=== PATIENT | female | born 1970 | race Two or more races ===

== ENCOUNTER 2018-05-26 05:55 | Emergency (ER) | payer BC, MEDICAID, SELFPAY ==
[~2018-05-26] VITALS: Ht 152.4 cm; Wt 48.2 kg
[2018-05-26 06:41] VITALS: BP 146/74
== END 2018-05-26 06:43 | disposition home or self-care (01) ==
LOC: ED 06:39
DX: L29.9 Pruritus, unspecified (principal); B85.0 Pediculosis due to Pediculus humanus capitis
CPT/HCPCS: 99283

== ENCOUNTER 2018-08-27 22:54 | Emergency (ER) | payer MEDICAID ==
[~2018-08-27] VITALS: Ht 152.4 cm; Wt 49.4 kg
[2018-08-27 22:58] VITALS: BP 148/90
[2018-08-27] MEDS ORDERED: METO50TA82 PO (23:47)
[2018-08-28 00:44] LABS: RAPID INFLUENZA A Negative (Negative); RAPID INFLUENZA B Negative (Negative)
== END 2018-08-28 01:19 | disposition home or self-care (01) ==
LOC: ED 08-28 00:01
DX: R05 Cough (principal); B34.9 Viral infection, unspecified; Z87.891 Personal history of nicotine dependence
CPT/HCPCS: 71046; 87400; 99284

== ENCOUNTER 2019-09-20 18:54 | Emergency (ER) | payer MEDICAID ==
[~2019-09-20] VITALS: Ht 152.4 cm; Wt 49.0 kg
[~2019-09-20 18:54] MED LIST: METO50TA82 PO
[2019-09-20 19:00] VITALS: BP 152/97
--- NOTE | 2019-09-20 19:19 | NUR ---
Pt reports having fever and generalized abd pain. Pt is alert and oriented. NAD. Call light within reach. Pt ambulatory to restroom for urine sample.
--- NOTE | 2019-09-20 19:38 | NUR ---
Urine sample and flu sample collected and sent to lab.
--- NOTE | 2019-09-20 20:15 | NUR ---
Pt given po fluids for po challenge.
[2019-09-20] MEDS ORDERED: ONDANSETRON ODT 4 MG ONE (20:30)
[2019-09-20] MEDS ORDERED: ONDANSETRON ODT 4 MG PO ONE (20:30)
--- NOTE | 2019-09-20 20:37 | NUR ---
Pt medicated per DEC. Pt reports she hasn't "gotten any satisfaction" from her coffee.
[2019-09-20 20:53] LABS: RAPID INFLUENZA A Negative (Negative); RAPID INFLUENZA B Negative (Negative)
--- NOTE | 2019-09-20 21:32 | NUR ---
Pt d/c'd to self care. Pt alert and NAD. Education provided on fluids, rest, hand hygiene, and OTC medications. Pt ambulated out of ER.
== END 2019-09-20 21:33 | disposition home or self-care (01) ==
LOC: ED 20:08
DX: B34.9 Viral infection, unspecified (principal); R11.2 Nausea with vomiting, unspecified; R10.84 Generalized abdominal pain
CPT/HCPCS: 87400; 99283; Q0162

== ENCOUNTER 2019-12-24 04:37 | Emergency (ER) | payer MEDICAID ==
[~2019-12-24] VITALS: Ht 152.4 cm; Wt 49.4 kg
[2019-12-24 04:40] VITALS: BP 167/94
[2019-12-24] MEDS ORDERED: HYDROcodone/APAP 5/325 TABLET PO ONE (05:30)
[2019-12-24] MEDS ORDERED: HYDROcodone/APAP 5/325 TABLET ONE (05:41)
[2019-12-25] MEDS ORDERED: no meds per pt (21:06)
== END 2019-12-24 07:49 | disposition home or self-care (01) ==
LOC: ED 07:42
DX: S50.12XA Contusion of left forearm, initial encounter (principal); W50.1XXA Accidental kick by another person, initial encounter; Y93.89 Activity, other specified; Y92.098 Other place in other non-institutional residence as the place of occurrence of the external cause; Y99.8 Other external cause status
CPT/HCPCS: 99283

== ENCOUNTER 2019-12-25 13:48 | Inpatient (IN) | payer MEDICAID ==
[~2019-12-25] VITALS: Ht 152.4 cm; Wt 47.0 kg
[2019-12-25] MEDS ORDERED: SODIUM CHLORIDE FLUSH 10ML SYR IVF ONE (15:00)
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
--- NOTE | 2019-12-25 15:39 | NUR ---
TASK RN: PIV PLACED FROM WHICH LABS WERE DRAWN, CT MADE AWARE OF PIV IN PLACE FOR TEST
[2019-12-25] MEDS ORDERED: MORPHINE SULFATE 4 MG/ML, 1ML ONE ×2 (15:43→17:33)
[2019-12-25] MEDS ORDERED: ONDANSETRON 2MG/ML, 2ML ONE (15:43)
[2019-12-25 15:44] LABS: BASOPHILS # (AUTO) 0.01 x10^3/uL (0-0.1); BASOPHILS % (AUTO) 0 % (0-1); EOSINOPHILS # (AUTO) 0.13 x10^3/uL (0-0.4); EOSINOPHILS % (AUTO) 1 % (1-7); LYMPHOCYTES % (AUTO) 8 % (22-44); MD NO; MEAN CORPUSCULAR HEMOGLOBIN 30.3 pg (27.0-34.8); MEAN CORPUSCULAR HGB CONC 33.2 g/dL (32.4-35.8); MEAN CORPUSCULAR VOLUME 91.3 fL (80-100); MEAN PLATELET VOLUME 7.7 fL (7.4-10.4); MONOCYTES % (AUTO) 4 % (2-9); NEUTROPHILS # (AUTO) 8.58 x10^3/uL (1.8-6.8); NEUTROPHILS % (AUTO) 87 % (42-75); PLATELET COUNT 356 x10^3/uL (130-400); RED BLOOD COUNT 5.06 x10^6/uL (3.82-5.3); RED CELL DISTRIBUTION WIDTH 13.2 % (9.6-15.2)
[2019-12-25] MEDS: MORPHINE SULFATE 4 MG/ML, 1ML IVPush PRN ×2 (15:49→17:36)
--- NOTE | 2019-12-25 15:49 | NUR ---
TASK RN: MEDICATED PER EMAR FOR LEFT ARM PAIN AT 10/10 WITH REASSESSMENT LEFT ARM COLD TO TOUCH, WEAK (+1 ULNAR/RADIAL PULSE). PATIENT REPORTS SENSATION INTACT, ALL MOTOR FUNCTION TO LUE INTACT
[2019-12-25 15:53] LABS: ALBUMIN 4.2 g/dL (3.4-5.0); ANION GAP 7 mmol/L (5-15); CALCIUM 9.2 mg/dL (8.5-10.1); CHLORIDE 106 mmol/L (98-107); CREATININE 0.95 mg/dL (0.55-1.02)
[2019-12-25] MEDS ORDERED: ONDANSETRON 2MG/ML, 2ML IVPush ONE (16:00)
--- NOTE | 2019-12-25 16:16 | NUR ---
PT TO RAD.
--- NOTE | 2019-12-25 16:28 | NUR ---
PT BACK FROM RAD.
--- NOTE | 2019-12-25 16:33 | NUR ---
PT REQ WATER. PER HOLD OFF TIL WE GET CTA RESULTS. PT UPDATED.
[2019-12-25] MEDS ORDERED: OMNIPAQUE 350 MG/ML, 100ML BOTTLE ONE (16:42)
[2019-12-25] MEDS ORDERED: PIPERACILLIN/TAZO/PMX 3.375GM 50 ML ONE (17:20)
[2019-12-25] MEDS ORDERED: VANCOMYCIN 1,200 MG in SODIUM CHLORIDE 0.9% 250 ML IV ONE (17:30)
[2019-12-25] MEDS ORDERED: VANCOMYCIN PER PHARMACY MC ONE (17:30)
[2019-12-25] MEDS ORDERED: PIPERACILLIN/TAZO/PMX 3.375GM 50 ML IV ONE (17:30)
--- NOTE | 2019-12-25 17:51 | NUR ---
PT PROVIDED SPRITE PER OK BY .
[2019-12-25] MEDS ORDERED: SODIUM CHLORIDE 0.9% 1,000 ML IV ONE (18:24)
[2019-12-25] MEDS ORDERED: SODIUM CHLORIDE FLUSH 10ML SYR IVF PRN (18:30)
[2019-12-25] MEDS ORDERED: PROPOFOL 10 MG/ML, 20ML ONE (18:40)
[2019-12-25] MEDS ORDERED: MIDAZOLAM 1 MG/ML, 2ML ONE (18:40)
[2019-12-25] MEDS ORDERED: FENTANYL PF 250 MCG/5ML ONE (18:40)
--- NOTE | 2019-12-25 18:41 | NUR ---
[facility] TELEPHONE HAND-OFF REPORT TO MELODIE BECK IN PRE-OP.
[2019-12-25] MEDS ORDERED: ROCURONIUM 10MG/ML,5ML ONE (18:42)
[2019-12-25] MEDS ORDERED: SUCCINYLCHOLINE 20 MG/ML, 10ML ONE (18:42)
[2019-12-25] MEDS ORDERED: PROMETHAZINE 25 MG/ML, 1ML IV PRN (19:00)
[2019-12-25] MEDS ORDERED: LABETALOL 5MG/ML, 20ML IV PRN (19:00)
[2019-12-25] MEDS ORDERED: ONDANSETRON 2MG/ML, 2ML IV PRN (19:00)
[2019-12-25] MEDS ORDERED: HYDROmorphone 2 MG/ML, 1ML IVPush PRN (19:00)
[2019-12-25] MEDS ORDERED: MEPERIDINE/PF 25MG/ML,1ML IVPush PRN (19:00)
[2019-12-25] MEDS ORDERED: ACETAMINOPHEN 325 MG TABLET PO PRN ×2 (19:00→19:30)
[2019-12-25] MEDS ORDERED: OXYcodone 5 MG/5 ML ORAL.SOL UDC PO PRN (19:00)
[2019-12-25] MEDS ORDERED: hydrALAzine 20 MG/ML, 1ML IV PRN (19:00)
[2019-12-25] MEDS ORDERED: PHENYLEPHRINE 10 MG/ML ONE (19:01)
[2019-12-25] MEDS ORDERED: EPHEDRINE 50 MG/ML, 1ML ONE ×2 (19:01→19:13)
[2019-12-25] MEDS ORDERED: TEMAZEPAM 15 MG CAPSULE PO PRN (19:30)
[2019-12-25] MEDS ORDERED: ENALAPRILAT 1.25 MG/ML, 2ML IVPush PRN (19:30)
[2019-12-25] MEDS ORDERED: LIDODERM 5% PATCH TD PRN (19:30)
[2019-12-25] MEDS ORDERED: VANCOMYCIN PER PHARMACY MC PRN (19:30)
[2019-12-25] MEDS ORDERED: ONDANSETRON 2MG/ML, 2ML IVPush PRN (19:30)
[2019-12-25] MEDS ORDERED: NALOXONE 0.4 MG/ML, 1ML ONE (19:35)
[2019-12-25] MEDS ORDERED: EPINEPHRINE 1 MG/ML, 1ML ONE (19:48)
[2019-12-25] MEDS ORDERED: FENTANYL PF 100 MCG/2ML ONE ×2 (20:08→20:32)
[2019-12-25] MEDS: FENTANYL PF 100 MCG/2ML IV PRN ×3 (20:10→20:34)
[2019-12-25] MEDS ORDERED: ACETAMINOPHEN 650 MG/20.3 ML UDC ONE (20:24)
[2019-12-25] MEDS ORDERED: OXYcodone 5 MG/5 ML ORAL.SOL UDC ONE (20:24)
[2019-12-25] MEDS ORDERED: PHARMACOKINETIC CONSULTATION MC ONE (21:00)
[2019-12-25] MEDS ORDERED: PHARMACOKINETIC MONITORING MC PRN (21:00)
[2019-12-25] MEDS ORDERED: no meds per pt (21:06)
[2019-12-25] MEDS ORDERED: FLU VACC QS2019-20 36MOS UP/PF 0.5 ML IM-VACC ONE (21:30)
[2019-12-26] MEDS: PIPERACILLIN/TAZO/PMX 3.375GM 50 ML IV SCH ×4 (01:27→19:45)
[2019-12-26] MEDS: OXYcodone/APAP 5/325MG TABLET PO PRN ×6 (01:27→22:45)
[2019-12-26 02:00] VITALS: BP 125/81
[2019-12-26 05:49] LABS: ANION GAP 5 mmol/L (5-15); CALCIUM 8.2 mg/dL (8.5-10.1); CHLORIDE 109 mmol/L (98-107); CREATININE 0.84 mg/dL (0.55-1.02)
[2019-12-26 05:55] LABS: BASOPHILS # (AUTO) 0.05 x10^3/uL (0-0.1); BASOPHILS % (AUTO) 1 % (0-1); EOSINOPHILS # (AUTO) 0.16 x10^3/uL (0-0.4); EOSINOPHILS % (AUTO) 3 % (1-7); LYMPHOCYTES # (AUTO) 1.01 x10^3/uL (1-3.4); LYMPHOCYTES % (AUTO) 18 % (22-44); MD NO; MEAN CORPUSCULAR HEMOGLOBIN 30.9 pg (27.0-34.8); MEAN CORPUSCULAR HGB CONC 33.8 g/dL (32.4-35.8); MEAN CORPUSCULAR VOLUME 91.5 fL (80-100); MEAN PLATELET VOLUME 7.3 fL (7.4-10.4); MONOCYTES # (AUTO) 0.41 x10^3/uL (0.2-0.8); MONOCYTES % (AUTO) 7 % (2-9); NEUTROPHILS # (AUTO) 4.02 x10^3/uL (1.8-6.8); NEUTROPHILS % (AUTO) 71 % (42-75); PLATELET COUNT 290 x10^3/uL (130-400); RED BLOOD COUNT 3.72 x10^6/uL (3.82-5.3); RED CELL DISTRIBUTION WIDTH 12.8 % (9.6-15.2)
[2019-12-26] MEDS: VANCOMYCIN 900 MG in SODIUM CHLORIDE 0.9% 100 ML IV SCH ×2 (06:06→21:26)
[2019-12-26 07:27] VITALS: BP 106/68
[2019-12-26 14:00] VITALS: BP 125/74
[2019-12-26 20:53] VITALS: BP 104/63
[2019-12-27 00:45] LABS: AMPHETAMINE SCREEN, URINE Positive (Negative); BARBITURATE SCREEN, URINE Negative (Negative); BENZODIAZEPINE SCREEN, URINE Positive (Negative); CANNABINOID SCREEN, URINE Negative (Negative); COCAINE SCREEN, URINE Negative (Negative); METHADONE SCREEN, URINE Negative (Negative); OPIATE SCREEN, URINE Positive (Negative)
[2019-12-27] MEDS: PIPERACILLIN/TAZO/PMX 3.375GM 50 ML IV SCH ×4 (01:33→20:23)
[2019-12-27 02:06] VITALS: BP 116/73
[2019-12-27] MEDS: OXYcodone/APAP 5/325MG TABLET PO PRN ×5 (02:32→20:19)
[2019-12-27 08:00] VITALS: BP 154/88
[2019-12-27] MEDS: VANCOMYCIN 900 MG in SODIUM CHLORIDE 0.9% 100 ML IV SCH ×2 (10:12→22:30)
[2019-12-27] MEDS ORDERED: POTASSIUM CHLORIDE 20 MEQ TAB.ER.PRT PO ONE (13:00)
[2019-12-27 13:26] VITALS: BP 142/77
[2019-12-27] MEDS: DOCUSATE 100 MG CAPSULE PO PRN (13:51)
[2019-12-27 19:43] VITALS: BP 143/77
[2019-12-28 00:03] VITALS: BP 151/83
[2019-12-28] MEDS: OXYcodone/APAP 5/325MG TABLET PO PRN ×5 (00:10→20:13)
[2019-12-28] MEDS: PIPERACILLIN/TAZO/PMX 3.375GM 50 ML IV SCH (01:10)
[2019-12-28] MEDS: DOCUSATE 100 MG CAPSULE PO PRN ×2 (05:09→20:13)
[2019-12-28 06:13] LABS: BASOPHILS # (AUTO) 0.04 x10^3/uL (0-0.1); BASOPHILS % (AUTO) 1 % (0-1); EOSINOPHILS # (AUTO) 0.26 x10^3/uL (0-0.4); EOSINOPHILS % (AUTO) 5 % (1-7); LYMPHOCYTES # (AUTO) 0.86 x10^3/uL (1-3.4); LYMPHOCYTES % (AUTO) 17 % (22-44); MD NO; MEAN CORPUSCULAR HEMOGLOBIN 30.7 pg (27.0-34.8); MEAN CORPUSCULAR HGB CONC 33.4 g/dL (32.4-35.8); MEAN CORPUSCULAR VOLUME 91.8 fL (80-100); MEAN PLATELET VOLUME 7.5 fL (7.4-10.4); MONOCYTES # (AUTO) 0.21 x10^3/uL (0.2-0.8); MONOCYTES % (AUTO) 4 % (2-9); NEUTROPHILS # (AUTO) 3.58 x10^3/uL (1.8-6.8); NEUTROPHILS % (AUTO) 72 % (42-75); PLATELET COUNT 278 x10^3/uL (130-400); RED BLOOD COUNT 3.42 x10^6/uL (3.82-5.3); RED CELL DISTRIBUTION WIDTH 13.2 % (9.6-15.2)
[2019-12-28 06:16] LABS: ANION GAP 5 mmol/L (5-15); CALCIUM 8.2 mg/dL (8.5-10.1); CHLORIDE 110 mmol/L (98-107); CREATININE 0.81 mg/dL (0.55-1.02)
[2019-12-28 06:56] VITALS: BP 137/79
[2019-12-28 13:16] VITALS: BP 135/75
[2019-12-28] MEDS ORDERED: MAGNESIUM HYDROXIDE 8%, 30ML UDC ONE (18:14)
[2019-12-28] MEDS ORDERED: MAGNESIUM HYDROXIDE 8%, 30ML UDC PO PRN (18:30)
[2019-12-28 19:13] VITALS: BP 159/91
[2019-12-29] MEDS: OXYcodone/APAP 5/325MG TABLET PO PRN ×3 (00:51→13:22)
[2019-12-29 01:59] VITALS: BP 138/81
[2019-12-29 07:11] VITALS: BP 133/88
[2019-12-29 13:15] VITALS: BP 161/95
[2019-12-29] MEDS ORDERED: ACET325T26 PO (15:01)
== END 2019-12-29 16:11 | disposition home or self-care (01) | DRG 580 ==
LOC: ED 16:25 → EDIP 18:24 → 4NE 20:51
PROVIDERS: ADMIT Family Medicine; ATTEND Internal Medicine Infectious Disease
PROC: 0J9H0ZZ Drainage of Left Lower Arm Subcutaneous Tissue and Fascia, Open Approach (ICD-10-PCS; principal; 2019-12-25 18:30)
DX: S50.12XA Contusion of left forearm, initial encounter (principal); L03.114 Cellulitis of left upper limb; L02.414 Cutaneous abscess of left upper limb; Z88.2 Allergy status to sulfonamides; D64.9 Anemia, unspecified; E87.6 Hypokalemia; F15.10 Other stimulant abuse, uncomplicated; F32.9 Major depressive disorder, single episode, unspecified; I95.89 Other hypotension; M72.9 Fibroblastic disorder, unspecified; S40.022A Contusion of left upper arm, initial encounter; Z82.49 Family history of ischemic heart disease and other diseases of the circulatory system; W50.1XXA Accidental kick by another person, initial encounter; Y93.89 Activity, other specified; Y92.89 Other specified places as the place of occurrence of the external cause; Y99.8 Other external cause status
CPT/HCPCS: 36415; 80048; 80202; 80307; 82040; 84145; 85025; 87040; 87070; 87075; 87081; 87176; 87205; 90686; 96374; 99291; G0378; J0171; J2250; J2310; J2405; J2543; J2704; J3010; J3370; Q9967; J0330; J2270; J2370; J7050